=== PATIENT | male | born 1950 ===

== ENCOUNTER 2025-01-22 00:28 | Outpatient (CLI) | payer MEDICARE, OTHER, SELFPAY ==
--- NOTE | 2025-01-22 | DI.MRI_ITS ---
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 Contrast injected sequences were performed following IV injection of 20 cc of Dotarem. COMPARISON: CT CT ABDOMEN PELVIS W CONTRAST from 10/20/2024 MR MR ABDOMEN W WO CONTRAST from 10/28/2024 (outside study) FINDINGS: VISUALIZED LUNG BASES: No pleural effusions evident. There is no generalized ascites evident. LIVER: Normal size. There are few small sub cm cysts again noted in the left hepatic lobe. No new focal hepatic lesions evident. BILIARY: Gallbladder is surgically absent. The CBD is not dilated. PANCREAS: There is again noted a complex irregular cystic mass lesion in the distal body and tail the pancreas measuring 11.5 cm wide by 9 cm AP by 7 cm craniocaudal, slightly larger than previous and there is ductal dilatation in the tail the pancreas again noted. There also again noted multiple cystic lesions scattered throughout the remainder of the pancreas which are slightly larger than previous. There is also a 1.3 cm lesion in the head of the pancreas which is slightly larger than previous measurement. SPLEEN: Spleen is not enlarged and there are no intrasplenic lesions.Splenic and portal veins are patent ADRENALS: There are no significant adrenal masses. KIDNEYS: Bilateral benign cortical cysts again noted, the largest again noted to be exophytic off the posterior aspect of the right kidney and measuring 3.5 cm. There are no solid lesions in the left kidney. The previously described suspicious enhancing solid lesion in the inferior pole region of the right kidney is again noted, measuring 3.3 x 2.2 cm and suspicious for renal cell carcinoma. In addition, there is another solid enhancing lesion in the anterior cortex of the right kidney mid level which is suspicious for malignancy, measuring 1.8 x 1.4 cm. There is also hemorrhagic cyst exophytic off the lateral aspect of the right kidney adjacent to the largest benign cyst. There are no solid lesions in the opposite-left kidney. There is no hydronephrosis on either side. ABDOMINAL AORTA: Not enlarged and there is no significant para-aortic adenopathy. ANTERIOR ABDOMINAL WALL/GI: There is no evidence of significant anterior abdominal wall hernia in the field of view of this study.Is no evidence of obvious bowel obstruction. OSSEOUS: There are no lytic osseous lesions in the field of view of this study. IMPRESSION: 1. Again noted is a complex irregular partially solid/predominately cystic mass- lesion in the body and tail the pancreas with measurements as above, slightly larger than previous at with associated dilatation of the duct of the pancreatic tail. There are also multiple cystic appearing lesions scattered throughout the remainder of the pancreas also appearing slightly larger as well as a 13 mm lesion in the head of the pancreas is also slightly larger than previous measurement. I note that the main pancreatic findings are located immediately behind the stomach and if clinically indicated can be sampled with transgastric endoscopic technique. 2. In addition to multiple benign cysts in the kidneys there is again noted a solid enhancing lesion in the inferior pole the right kidney measuring 3.3 x 2.2 cm which is suspicious for renal cell carcinoma, unchanged in size from the previous October 2024 study. There is also suggestion of a 2nd similar malignant- appearing but smaller solid lesion in the right kidney measuring 1.8 x 1.4 cm. There are no solid lesions in the opposite-left kidney. 3. Previous cholecystectomy. CBD is not dilated. DATA REPOSITORY:
[2025-01-22] MEDS: Gadoterate meglumine 20 ML VIAL IVP (10:58)
--- NOTE | 2025-01-22 15:15 | DI.VRAD_ITS ---
PROCEDURE INFORMATION: Exam: MR Abdomen Without and With Contrast Exam date and time: 01/22/2025 8:03 AM Age: 74 years old Clinical indication: Abnormal findings; Abnormal radiologic finding of the abdomen; Radiologic exam and body structure: Mri, CT abdomen; Known pancreatic cyst and kidney mass right kidney TECHNIQUE: Imaging protocol: Magnetic resonance imaging of the abdomen without and with contrast. Contrast material: GADOTERATE MEGLUMINE; Contrast volume: 20 ml; Contrast route: INTRAVENOUS (IV); COMPARISON: MR ABDOMEN W WO CONTRAST 10/28/2024 9:06 AM FINDINGS: Liver: Hepatic cysts similar. Gallbladder and biliary ducts: Unremarkable. No stones. No ductal dilation. Pancreas: Complex irregular cystic lesion/mass distal body and tail of the pancreas slightly larger than previous measuring up to 9 x 11.5 cm. Multiple cystic appearing lesions scattered throughout the remainder of the pancreas also slightly larger. 13 mm lesion at the head of the pancreas previously measured 10 mm. Pancreatic ductal dilatation most prominent at the tail of the pancreas similar. Spleen: Unremarkable. No splenomegaly. Adrenal glands: Unremarkable. No mass. Kidneys: Stable 2.6 x 3.2 cm enhancing mass lower pole right kidney consistent with neoplasm. No hydronephrosis. Several simple cysts both kidneys largest 3 cm. Several hemorrhagic or proteinaceous cysts both kidneys largest 2 cm. Stomach and bowel: Visualized stomach and intestines are unremarkable. Intraperitoneal space: No free fluid. Vasculature: No abdominal aortic aneurysm. Lymph nodes: No enlarged nodes. Bones/joints: Unremarkable. No suspicious lesions. Soft tissues: Unremarkable. IMPRESSION: 1. Complex irregular cystic lesion/mass distal body and tail of the pancreas slightly larger than previous measuring up to 9 x 11.5 cm. Multiple cystic appearing lesions scattered throughout the remainder of the pancreas also slightly larger. 13 mm lesion at the head of the pancreas previously measured 10 mm. Pancreatic ductal dilatation most prominent at the tail of the pancreas similar. 2. Stable 2.6 x 3.2 cm enhancing mass lower pole right kidney consistent with neoplasm. Dictated and Authenticated by: Jaime Roberts MD. Orderin Lis Carrasquillo MD
== END 2025-01-22 00:48 ==
LOC: DI 00:29
PROVIDERS: Visit Provider Physician Assistant
DX: K86.2 Cyst of pancreas (principal); R93.421 Abnormal radiologic findings on diagnostic imaging of right kidney
CPT/HCPCS: 74183